=== PATIENT | female | born 1965 | race African-American/Black ===

== ENCOUNTER 2020-12-21 12:37 | Inpatient (IN) | payer OTHER ==
[2020-12-21 14:05] VITALS: BMI 49.8
[2020-12-21] MEDS ORDERED: MAGNESIUM HYDROX 2400MG/30ML ORAL SUSPENSION 30 ML CUP PO PRN (14:40)
[2020-12-21] MEDS ORDERED: MAGNESIUM CITRATE 300 ML BOTTLE PO PRN (14:40)
[2020-12-21] MEDS ORDERED: MAG HYDROX/AL HYDROX/SIMETH 30 ML UNIT-DOSE CUP PO PRN (14:40)
[2020-12-21] MEDS ORDERED: NICOTINE POLACRILEX 2 MG GUM BUC PRN (14:40)
[2020-12-21] MEDS ORDERED: IBUPROFEN 400 MG TABLET (FP) PO PRN (14:40)
[2020-12-21] MEDS ORDERED: LOPERAMIDE HCL 2 MG CAPSULE PO PRN (14:40)
[2020-12-21] MEDS ORDERED: guaiFENesin 200 MG/10 ML 10 ML UNIT-DOSE CUPS PO PRN (14:40)
[2020-12-21] MEDS ORDERED: P-EPHED 60MG/TRIPROLIDI 2.5MG TABLET PO PRN (14:40)
[2020-12-21] MEDS ORDERED: ACETAMINOPHEN 325 MG TABLET (FP) PO PRN (14:40)
[2020-12-21] MEDS ORDERED: ALBUTEROL SO4 HFA INHALER IH PRN (14:45)
[2020-12-21] MEDS ORDERED: NICOTINE 7 MG/24 HOURS TOPICAL PATCH TD SCH (14:45)
[2020-12-21 17:50] LABS: POTASSIUM 4.3 mmol/L (3.5-5.1)
[2020-12-21 17:51] LABS: HEMATOCRIT 45.4 % (32.4-45.2); HEMOGLOBIN 14.5 GM/dL (10.7-15.3); MCH 28.5 pg (25.7-33.7); MEAN CELL VOLUME 89.1 fl (80-96); MEAN PLT VOLUME 8.4 fl (7.5-11.1); PLATELET COUNT 237 K/MM3 (134-434); RDW 15.7 % (11.6-15.6); WHITE BLOOD COUNT 10.8 K/mm3 (4.0-10.0)
[2020-12-21 17:57] LABS: BLOOD UREA NITROGEN 20.8 mg/dL (7-18); CALCIUM 9.4 mg/dL (8.5-10.1)
[2020-12-21 18:02] LABS: BILIRUBIN,TOTAL 1.1 mg/dL (0.2-1); TOT PROT 6.6 g/dl (6.4-8.2)
[2020-12-21] MEDS: metFORMIN HCL 500 MG TABLET (FP) PO SCH (18:03)
[2020-12-21] MEDS: hydrOXYzine PAMOATE 25 MG CAPSULE (FP) PO SCH ×2 (18:07→21:59)
[2020-12-21 18:51] LABS: HIV INTERPRETATION NEGATIVE (NEGATIVE)
[2020-12-21] MEDS: MONTELUKAST NA 10 MG TABLET PO SCH (21:58)
[2020-12-21] MEDS: MELATONIN 5 MG TABLETS PO SCH (22:00)
[2020-12-21] MEDS: BUDESONIDE/FORMETEROL FUMARATE 80/4.5 mcg INHALER IH SCH (22:00)
[2020-12-21] MEDS: THIAMINE HCL 100 MG TABLET (FP) PO SCH (22:01)
[2020-12-22 00:15] LABS: URINE APPEARANCE TURBID; URINE BILIRUBIN NEGATIVE (NEGATIVE); URINE COLOR YELLOW; URINE GLUCOSE (UA) NEGATIVE (NEGATIVE); URINE KETONE TRACE (NEGATIVE); URINE LEUK ESTERASE NEGATIVE (NEGATIVE); URINE NITRITE NEGATIVE (NEGATIVE); URINE PROTEIN TRACE (NEGATIVE); URINE UROBILINOGEN 0.2 mg/dL (0.2-1.0)
[2020-12-22] MEDS: NICOTINE 14 MG/24 HOURS TOPICAL PATCH TD SCH ×2 (00:28→10:45)
[2020-12-22] MEDS: hydrOXYzine PAMOATE 25 MG CAPSULE (FP) PO SCH ×5 (06:31→21:29)
[2020-12-22] MEDS: metFORMIN HCL 500 MG TABLET (FP) PO SCH ×2 (06:32→16:52)
[2020-12-22] MEDS: PRENATAL VITAMINS W/ FOLIC ACID TABLET (FP) PO SCH (10:43)
[2020-12-22] MEDS: HYDROCHLOROTHIAZIDE 25 MG TABLET (FP) PO SCH (10:43)
[2020-12-22] MEDS: amLODIPine BESYLATE 10 MG TABLET (FP) PO SCH (10:44)
[2020-12-22] MEDS: ASPIRIN 81 MG CHEWABLE TABLETS PO SCH (10:44)
[2020-12-22] MEDS: ROSUVASTATIN CA 20 MG TABLET (FP) PO SCH (10:45)
[2020-12-22] MEDS: FUROSEMIDE 40 MG TABLET (FP) PO SCH (10:45)
[2020-12-22] MEDS: BUDESONIDE/FORMETEROL FUMARATE 80/4.5 mcg INHALER IH SCH ×2 (10:45→21:30)
[2020-12-22] MEDS: LISINOPRIL 20 MG TABLET PO SCH (10:47)
[2020-12-22] MEDS: TIOTROPIUM BROMIDE 2.5 MCG (SPIRIVA) RESPIMAT INHALER IH SCH (10:49)
[2020-12-22] MEDS: MONTELUKAST NA 10 MG TABLET PO SCH (21:29)
[2020-12-22] MEDS: MELATONIN 5 MG TABLETS PO SCH (21:29)
[2020-12-22] MEDS: THIAMINE HCL 100 MG TABLET (FP) PO SCH (21:29)
[2020-12-23] MEDS: hydrOXYzine PAMOATE 25 MG CAPSULE (FP) PO SCH ×5 (06:23→23:06)
[2020-12-23] MEDS: metFORMIN HCL 500 MG TABLET (FP) PO SCH ×2 (06:33→16:53)
[2020-12-23] MEDS: ASPIRIN 81 MG CHEWABLE TABLETS PO SCH (10:17)
[2020-12-23] MEDS: LISINOPRIL 20 MG TABLET PO SCH (10:17)
[2020-12-23] MEDS: amLODIPine BESYLATE 10 MG TABLET (FP) PO SCH (10:17)
[2020-12-23] MEDS: PRENATAL VITAMINS W/ FOLIC ACID TABLET (FP) PO SCH (10:17)
[2020-12-23] MEDS: HYDROCHLOROTHIAZIDE 25 MG TABLET (FP) PO SCH (10:17)
[2020-12-23] MEDS: TIOTROPIUM BROMIDE 2.5 MCG (SPIRIVA) RESPIMAT INHALER IH SCH (10:17)
[2020-12-23] MEDS: BUDESONIDE/FORMETEROL FUMARATE 80/4.5 mcg INHALER IH SCH ×2 (10:17→23:06)
[2020-12-23] MEDS: ROSUVASTATIN CA 20 MG TABLET (FP) PO SCH (10:18)
[2020-12-23] MEDS: FUROSEMIDE 40 MG TABLET (FP) PO SCH (10:18)
[2020-12-23] MEDS: NICOTINE 14 MG/24 HOURS TOPICAL PATCH TD SCH (10:18)
[2020-12-23] MEDS: traZODone HCL 50 MG TABLET (FP) PO SCH (23:05)
[2020-12-23] MEDS: MELATONIN 5 MG TABLETS PO SCH (23:05)
[2020-12-23] MEDS: THIAMINE HCL 100 MG TABLET (FP) PO SCH (23:06)
[2020-12-23] MEDS: MONTELUKAST NA 10 MG TABLET PO SCH (23:06)
[2020-12-24] MEDS: metFORMIN HCL 500 MG TABLET (FP) PO SCH ×2 (07:05→17:09)
[2020-12-24] MEDS: hydrOXYzine PAMOATE 25 MG CAPSULE (FP) PO SCH (07:05)
[2020-12-24] MEDS ORDERED: ARIPiprazole 20 MG TABLET PO SCH (10:00)
[2020-12-24] MEDS: PRENATAL VITAMINS W/ FOLIC ACID TABLET (FP) PO SCH (10:49)
[2020-12-24] MEDS: amLODIPine BESYLATE 10 MG TABLET (FP) PO SCH (10:49)
[2020-12-24] MEDS: HYDROCHLOROTHIAZIDE 25 MG TABLET (FP) PO SCH (10:49)
[2020-12-24] MEDS: ESCITALOPRAM OXALATE 10 MG TABLET PO SCH (10:49)
[2020-12-24] MEDS: LISINOPRIL 20 MG TABLET PO SCH (10:50)
[2020-12-24] MEDS: ASPIRIN 81 MG CHEWABLE TABLETS PO SCH (10:50)
[2020-12-24] MEDS: BUDESONIDE/FORMETEROL FUMARATE 80/4.5 mcg INHALER IH SCH ×2 (10:52→22:58)
[2020-12-24] MEDS: NICOTINE 14 MG/24 HOURS TOPICAL PATCH TD SCH (10:52)
[2020-12-24] MEDS: TIOTROPIUM BROMIDE 2.5 MCG (SPIRIVA) RESPIMAT INHALER IH SCH (10:52)
[2020-12-24] MEDS: FUROSEMIDE 40 MG TABLET (FP) PO SCH (11:55)
[2020-12-24] MEDS: ROSUVASTATIN CA 20 MG TABLET (FP) PO SCH (11:55)
[2020-12-24] MEDS: traZODone HCL 50 MG TABLET (FP) PO SCH (22:57)
[2020-12-24] MEDS: MELATONIN 5 MG TABLETS PO SCH (22:57)
[2020-12-24] MEDS: THIAMINE HCL 100 MG TABLET (FP) PO SCH (22:58)
[2020-12-24] MEDS: MONTELUKAST NA 10 MG TABLET PO SCH (22:58)
[2020-12-25] MEDS: metFORMIN HCL 500 MG TABLET (FP) PO SCH ×2 (06:30→16:48)
[2020-12-25] MEDS: ASPIRIN 81 MG CHEWABLE TABLETS PO SCH (10:12)
[2020-12-25] MEDS: ESCITALOPRAM OXALATE 10 MG TABLET PO SCH (10:12)
[2020-12-25] MEDS: LISINOPRIL 20 MG TABLET PO SCH (10:12)
[2020-12-25] MEDS: PRENATAL VITAMINS W/ FOLIC ACID TABLET (FP) PO SCH (10:12)
[2020-12-25] MEDS: HYDROCHLOROTHIAZIDE 25 MG TABLET (FP) PO SCH (10:12)
[2020-12-25] MEDS: NICOTINE 14 MG/24 HOURS TOPICAL PATCH TD SCH (10:12)
[2020-12-25] MEDS: amLODIPine BESYLATE 10 MG TABLET (FP) PO SCH (10:12)
[2020-12-25] MEDS: ROSUVASTATIN CA 20 MG TABLET (FP) PO SCH (10:12)
[2020-12-25] MEDS: ARIPiprazole 15 MG TABLET PO SCH (10:13)
[2020-12-25] MEDS: FUROSEMIDE 40 MG TABLET (FP) PO SCH (10:13)
[2020-12-25] MEDS: TIOTROPIUM BROMIDE 2.5 MCG (SPIRIVA) RESPIMAT INHALER IH SCH (10:16)
[2020-12-25] MEDS: BUDESONIDE/FORMETEROL FUMARATE 80/4.5 mcg INHALER IH SCH ×2 (10:16→21:17)
[2020-12-25] MEDS: MONTELUKAST NA 10 MG TABLET PO SCH (21:17)
[2020-12-25] MEDS: traZODone HCL 50 MG TABLET (FP) PO SCH (21:17)
[2020-12-25] MEDS: MELATONIN 5 MG TABLETS PO SCH (21:17)
[2020-12-25] MEDS: THIAMINE HCL 100 MG TABLET (FP) PO SCH (21:17)
[2020-12-26] MEDS: metFORMIN HCL 500 MG TABLET (FP) PO SCH ×2 (06:46→16:23)
[2020-12-26] MEDS: PRENATAL VITAMINS W/ FOLIC ACID TABLET (FP) PO SCH (10:03)
[2020-12-26] MEDS: ESCITALOPRAM OXALATE 10 MG TABLET PO SCH (10:03)
[2020-12-26] MEDS: ARIPiprazole 15 MG TABLET PO SCH (10:03)
[2020-12-26] MEDS: TIOTROPIUM BROMIDE 2.5 MCG (SPIRIVA) RESPIMAT INHALER IH SCH (10:03)
[2020-12-26] MEDS: hydrOXYzine PAMOATE 25 MG CAPSULE (FP) PO PRN (10:04)
[2020-12-26] MEDS: amLODIPine BESYLATE 10 MG TABLET (FP) PO SCH (10:04)
[2020-12-26] MEDS: NICOTINE 14 MG/24 HOURS TOPICAL PATCH TD SCH (10:04)
[2020-12-26] MEDS: LISINOPRIL 20 MG TABLET PO SCH (10:04)
[2020-12-26] MEDS: HYDROCHLOROTHIAZIDE 25 MG TABLET (FP) PO SCH (10:04)
[2020-12-26] MEDS: ROSUVASTATIN CA 20 MG TABLET (FP) PO SCH (10:04)
[2020-12-26] MEDS: ASPIRIN 81 MG CHEWABLE TABLETS PO SCH (10:04)
[2020-12-26] MEDS: FUROSEMIDE 40 MG TABLET (FP) PO SCH (10:05)
[2020-12-26] MEDS: BUDESONIDE/FORMETEROL FUMARATE 80/4.5 mcg INHALER IH SCH ×2 (10:05→21:40)
[2020-12-26] MEDS: MELATONIN 5 MG TABLETS PO SCH (21:39)
[2020-12-26] MEDS: THIAMINE HCL 100 MG TABLET (FP) PO SCH (21:39)
[2020-12-26] MEDS: traZODone HCL 50 MG TABLET (FP) PO SCH (21:39)
[2020-12-26] MEDS: MONTELUKAST NA 10 MG TABLET PO SCH (21:40)
[2020-12-27] MEDS: metFORMIN HCL 500 MG TABLET (FP) PO SCH ×2 (06:57→17:13)
[2020-12-27] MEDS: BUDESONIDE/FORMETEROL FUMARATE 80/4.5 mcg INHALER IH SCH ×2 (10:03→22:37)
[2020-12-27] MEDS: TIOTROPIUM BROMIDE 2.5 MCG (SPIRIVA) RESPIMAT INHALER IH SCH (10:03)
[2020-12-27] MEDS: PRENATAL VITAMINS W/ FOLIC ACID TABLET (FP) PO SCH (10:04)
[2020-12-27] MEDS: HYDROCHLOROTHIAZIDE 25 MG TABLET (FP) PO SCH (10:04)
[2020-12-27] MEDS: FUROSEMIDE 40 MG TABLET (FP) PO SCH (10:04)
[2020-12-27] MEDS: ARIPiprazole 15 MG TABLET PO SCH (10:04)
[2020-12-27] MEDS: LISINOPRIL 20 MG TABLET PO SCH (10:04)
[2020-12-27] MEDS: NICOTINE 14 MG/24 HOURS TOPICAL PATCH TD SCH (10:04)
[2020-12-27] MEDS: ESCITALOPRAM OXALATE 10 MG TABLET PO SCH (10:04)
[2020-12-27] MEDS: ASPIRIN 81 MG CHEWABLE TABLETS PO SCH (10:04)
[2020-12-27] MEDS: ROSUVASTATIN CA 20 MG TABLET (FP) PO SCH (10:04)
[2020-12-27] MEDS: amLODIPine BESYLATE 10 MG TABLET (FP) PO SCH (10:04)
[2020-12-27] MEDS: MELATONIN 5 MG TABLETS PO SCH (22:35)
[2020-12-27] MEDS: THIAMINE HCL 100 MG TABLET (FP) PO SCH (22:36)
[2020-12-27] MEDS: MONTELUKAST NA 10 MG TABLET PO SCH (22:36)
[2020-12-27] MEDS: traZODone HCL 50 MG TABLET (FP) PO SCH (22:36)
[2020-12-28] MEDS: metFORMIN HCL 500 MG TABLET (FP) PO SCH ×2 (06:48→17:08)
[2020-12-28] MEDS ORDERED: PT OWN MED DRAWER 7, Y5N ONE ×3 (08:45→10:19)
[2020-12-28] MEDS: PRENATAL VITAMINS W/ FOLIC ACID TABLET (FP) PO SCH (10:15)
[2020-12-28] MEDS: amLODIPine BESYLATE 10 MG TABLET (FP) PO SCH (10:15)
[2020-12-28] MEDS: ARIPiprazole 15 MG TABLET PO SCH (10:15)
[2020-12-28] MEDS: hydrOXYzine PAMOATE 25 MG CAPSULE (FP) PO PRN (10:15)
[2020-12-28] MEDS: ESCITALOPRAM OXALATE 10 MG TABLET PO SCH (10:15)
[2020-12-28] MEDS: ASPIRIN 81 MG CHEWABLE TABLETS PO SCH (10:15)
[2020-12-28] MEDS: HYDROCHLOROTHIAZIDE 25 MG TABLET (FP) PO SCH (10:15)
[2020-12-28] MEDS: LISINOPRIL 20 MG TABLET PO SCH (10:15)
[2020-12-28] MEDS: FUROSEMIDE 40 MG TABLET (FP) PO SCH (10:15)
[2020-12-28] MEDS: ROSUVASTATIN CA 20 MG TABLET (FP) PO SCH (10:17)
[2020-12-28] MEDS: BUDESONIDE/FORMETEROL FUMARATE 80/4.5 mcg INHALER IH SCH ×2 (10:19→21:33)
[2020-12-28] MEDS: TIOTROPIUM BROMIDE 2.5 MCG (SPIRIVA) RESPIMAT INHALER IH SCH (10:19)
[2020-12-28] MEDS: NICOTINE 14 MG/24 HOURS TOPICAL PATCH TD SCH (10:20)
[2020-12-28] MEDS ORDERED: MASKS NR ONE (13:02)
[2020-12-28] MEDS: traZODone HCL 50 MG TABLET (FP) PO SCH (21:33)
[2020-12-28] MEDS: MONTELUKAST NA 10 MG TABLET PO SCH (21:33)
[2020-12-28] MEDS: THIAMINE HCL 100 MG TABLET (FP) PO SCH (21:33)
[2020-12-28] MEDS: MELATONIN 5 MG TABLETS PO SCH (21:33)
[2020-12-29] MEDS: metFORMIN HCL 500 MG TABLET (FP) PO SCH ×2 (06:44→16:40)
[2020-12-29] MEDS ORDERED: PT OWN MED DRAWER 7, Y5N ONE ×2 (09:12→20:21)
[2020-12-29] MEDS: ARIPiprazole 15 MG TABLET PO SCH (10:27)
[2020-12-29] MEDS: ROSUVASTATIN CA 20 MG TABLET (FP) PO SCH (10:28)
[2020-12-29] MEDS: ASPIRIN 81 MG CHEWABLE TABLETS PO SCH (10:28)
[2020-12-29] MEDS: HYDROCHLOROTHIAZIDE 25 MG TABLET (FP) PO SCH (10:29)
[2020-12-29] MEDS: ESCITALOPRAM OXALATE 10 MG TABLET PO SCH (10:30)
[2020-12-29] MEDS: FUROSEMIDE 40 MG TABLET (FP) PO SCH (10:30)
[2020-12-29] MEDS: NICOTINE 14 MG/24 HOURS TOPICAL PATCH TD SCH (10:31)
[2020-12-29] MEDS: amLODIPine BESYLATE 10 MG TABLET (FP) PO SCH (10:32)
[2020-12-29] MEDS: PRENATAL VITAMINS W/ FOLIC ACID TABLET (FP) PO SCH (10:32)
[2020-12-29] MEDS: LISINOPRIL 20 MG TABLET PO SCH (10:32)
[2020-12-29] MEDS: BUDESONIDE/FORMETEROL FUMARATE 80/4.5 mcg INHALER IH SCH ×2 (10:34→21:28)
[2020-12-29] MEDS: TIOTROPIUM BROMIDE 2.5 MCG (SPIRIVA) RESPIMAT INHALER IH SCH (10:34)
[2020-12-29] MEDS: MONTELUKAST NA 10 MG TABLET PO SCH (21:26)
[2020-12-29] MEDS: traZODone HCL 50 MG TABLET (FP) PO SCH (21:27)
[2020-12-29] MEDS: THIAMINE HCL 100 MG TABLET (FP) PO SCH (21:27)
[2020-12-29] MEDS: MELATONIN 5 MG TABLETS PO SCH (21:28)
[2020-12-30] MEDS: metFORMIN HCL 500 MG TABLET (FP) PO SCH ×2 (06:52→17:00)
[2020-12-30] MEDS ORDERED: PT OWN MED DRAWER 7, Y5N ONE (09:07)
[2020-12-30] MEDS: PRENATAL VITAMINS W/ FOLIC ACID TABLET (FP) PO SCH (10:02)
[2020-12-30] MEDS: NICOTINE 14 MG/24 HOURS TOPICAL PATCH TD SCH (10:02)
[2020-12-30] MEDS: ASPIRIN 81 MG CHEWABLE TABLETS PO SCH (10:03)
[2020-12-30] MEDS: LISINOPRIL 20 MG TABLET PO SCH (10:03)
[2020-12-30] MEDS: ARIPiprazole 15 MG TABLET PO SCH (10:03)
[2020-12-30] MEDS: TIOTROPIUM BROMIDE 2.5 MCG (SPIRIVA) RESPIMAT INHALER IH SCH (10:05)
[2020-12-30] MEDS: BUDESONIDE/FORMETEROL FUMARATE 80/4.5 mcg INHALER IH SCH ×2 (10:05→21:36)
[2020-12-30] MEDS: FUROSEMIDE 40 MG TABLET (FP) PO SCH (10:05)
[2020-12-30] MEDS: HYDROCHLOROTHIAZIDE 25 MG TABLET (FP) PO SCH (10:05)
[2020-12-30] MEDS: amLODIPine BESYLATE 10 MG TABLET (FP) PO SCH (10:05)
[2020-12-30] MEDS: ESCITALOPRAM OXALATE 10 MG TABLET PO SCH (10:05)
[2020-12-30] MEDS: ROSUVASTATIN CA 20 MG TABLET (FP) PO SCH (10:05)
[2020-12-30] MEDS: traZODone HCL 50 MG TABLET (FP) PO SCH (21:35)
[2020-12-30] MEDS: MELATONIN 5 MG TABLETS PO SCH (21:35)
[2020-12-30] MEDS: MONTELUKAST NA 10 MG TABLET PO SCH (21:36)
[2020-12-30] MEDS: THIAMINE HCL 100 MG TABLET (FP) PO SCH (21:36)
[2020-12-31] MEDS: metFORMIN HCL 500 MG TABLET (FP) PO SCH ×2 (06:35→16:50)
[2020-12-31] MEDS: ASPIRIN 81 MG CHEWABLE TABLETS PO SCH (10:45)
[2020-12-31] MEDS: PRENATAL VITAMINS W/ FOLIC ACID TABLET (FP) PO SCH (10:45)
[2020-12-31] MEDS: FUROSEMIDE 40 MG TABLET (FP) PO SCH (10:46)
[2020-12-31] MEDS: LISINOPRIL 20 MG TABLET PO SCH (10:46)
[2020-12-31] MEDS: HYDROCHLOROTHIAZIDE 25 MG TABLET (FP) PO SCH (10:46)
[2020-12-31] MEDS: amLODIPine BESYLATE 10 MG TABLET (FP) PO SCH (10:46)
[2020-12-31] MEDS: ESCITALOPRAM OXALATE 10 MG TABLET PO SCH (10:46)
[2020-12-31] MEDS: BUDESONIDE/FORMETEROL FUMARATE 80/4.5 mcg INHALER IH SCH ×2 (10:47→21:34)
[2020-12-31] MEDS: TIOTROPIUM BROMIDE 2.5 MCG (SPIRIVA) RESPIMAT INHALER IH SCH (10:47)
[2020-12-31] MEDS: ROSUVASTATIN CA 20 MG TABLET (FP) PO SCH (10:47)
[2020-12-31] MEDS: ARIPiprazole 15 MG TABLET PO SCH (10:47)
[2020-12-31] MEDS: NICOTINE 14 MG/24 HOURS TOPICAL PATCH TD SCH (10:48)
[2020-12-31] MEDS: hydrOXYzine PAMOATE 25 MG CAPSULE (FP) PO PRN (21:33)
[2020-12-31] MEDS: MONTELUKAST NA 10 MG TABLET PO SCH (21:33)
[2020-12-31] MEDS: THIAMINE HCL 100 MG TABLET (FP) PO SCH (21:33)
[2020-12-31] MEDS: MELATONIN 5 MG TABLETS PO SCH (21:33)
[2020-12-31] MEDS: traZODone HCL 50 MG TABLET (FP) PO SCH (21:33)
[2021-01-01] MEDS ORDERED: PT OWN MED DRAWER 7, Y5N ONE ×2 (03:22→08:41)
[2021-01-01] MEDS: metFORMIN HCL 500 MG TABLET (FP) PO SCH ×2 (07:23→16:56)
[2021-01-01] MEDS: ESCITALOPRAM OXALATE 10 MG TABLET PO SCH (09:49)
[2021-01-01] MEDS: FUROSEMIDE 40 MG TABLET (FP) PO SCH (09:49)
[2021-01-01] MEDS: ARIPiprazole 15 MG TABLET PO SCH (09:49)
[2021-01-01] MEDS: BUDESONIDE/FORMETEROL FUMARATE 80/4.5 mcg INHALER IH SCH ×2 (09:49→21:43)
[2021-01-01] MEDS: ASPIRIN 81 MG CHEWABLE TABLETS PO SCH (09:49)
[2021-01-01] MEDS: TIOTROPIUM BROMIDE 2.5 MCG (SPIRIVA) RESPIMAT INHALER IH SCH (09:50)
[2021-01-01] MEDS: ROSUVASTATIN CA 20 MG TABLET (FP) PO SCH (09:50)
[2021-01-01] MEDS: NICOTINE 14 MG/24 HOURS TOPICAL PATCH TD SCH (09:51)
[2021-01-01] MEDS: HYDROCHLOROTHIAZIDE 25 MG TABLET (FP) PO SCH (09:51)
[2021-01-01] MEDS: LISINOPRIL 20 MG TABLET PO SCH (09:52)
[2021-01-01] MEDS: PRENATAL VITAMINS W/ FOLIC ACID TABLET (FP) PO SCH (09:52)
[2021-01-01] MEDS: amLODIPine BESYLATE 10 MG TABLET (FP) PO SCH (09:52)
[2021-01-01] MEDS: MELATONIN 5 MG TABLETS PO SCH (21:42)
[2021-01-01] MEDS: traZODone HCL 50 MG TABLET (FP) PO SCH (21:42)
[2021-01-01] MEDS: MONTELUKAST NA 10 MG TABLET PO SCH (21:42)
[2021-01-01] MEDS: THIAMINE HCL 100 MG TABLET (FP) PO SCH (21:43)
[2021-01-02] MEDS: metFORMIN HCL 500 MG TABLET (FP) PO SCH ×2 (06:39→16:56)
[2021-01-02] MEDS ORDERED: PT OWN MED DRAWER 7, Y5N ONE (08:57)
[2021-01-02] MEDS: TIOTROPIUM BROMIDE 2.5 MCG (SPIRIVA) RESPIMAT INHALER IH SCH (09:43)
[2021-01-02] MEDS: BUDESONIDE/FORMETEROL FUMARATE 80/4.5 mcg INHALER IH SCH ×2 (09:43→21:33)
[2021-01-02] MEDS: ASPIRIN 81 MG CHEWABLE TABLETS PO SCH (09:44)
[2021-01-02] MEDS: FUROSEMIDE 40 MG TABLET (FP) PO SCH (09:44)
[2021-01-02] MEDS: ROSUVASTATIN CA 20 MG TABLET (FP) PO SCH (09:44)
[2021-01-02] MEDS: HYDROCHLOROTHIAZIDE 25 MG TABLET (FP) PO SCH (09:44)
[2021-01-02] MEDS: ARIPiprazole 15 MG TABLET PO SCH (09:44)
[2021-01-02] MEDS: amLODIPine BESYLATE 10 MG TABLET (FP) PO SCH (09:44)
[2021-01-02] MEDS: LISINOPRIL 20 MG TABLET PO SCH (09:44)
[2021-01-02] MEDS: ESCITALOPRAM OXALATE 10 MG TABLET PO SCH (09:44)
[2021-01-02] MEDS: NICOTINE 14 MG/24 HOURS TOPICAL PATCH TD SCH (09:46)
[2021-01-02] MEDS: PRENATAL VITAMINS W/ FOLIC ACID TABLET (FP) PO SCH (09:46)
[2021-01-02] MEDS: MELATONIN 5 MG TABLETS PO SCH (21:32)
[2021-01-02] MEDS: traZODone HCL 50 MG TABLET (FP) PO SCH (21:32)
[2021-01-02] MEDS: MONTELUKAST NA 10 MG TABLET PO SCH (21:32)
[2021-01-02] MEDS: THIAMINE HCL 100 MG TABLET (FP) PO SCH (21:32)
[2021-01-03] MEDS: metFORMIN HCL 500 MG TABLET (FP) PO SCH ×2 (06:59→16:36)
[2021-01-03] MEDS ORDERED: PT OWN MED DRAWER 7, Y5N ONE ×2 (09:06→10:04)
[2021-01-03] MEDS: ASPIRIN 81 MG CHEWABLE TABLETS PO SCH (10:03)
[2021-01-03] MEDS: ARIPiprazole 15 MG TABLET PO SCH (10:03)
[2021-01-03] MEDS: ESCITALOPRAM OXALATE 10 MG TABLET PO SCH (10:04)
[2021-01-03] MEDS: HYDROCHLOROTHIAZIDE 25 MG TABLET (FP) PO SCH (10:04)
[2021-01-03] MEDS: ROSUVASTATIN CA 20 MG TABLET (FP) PO SCH (10:04)
[2021-01-03] MEDS: amLODIPine BESYLATE 10 MG TABLET (FP) PO SCH (10:05)
[2021-01-03] MEDS: FUROSEMIDE 40 MG TABLET (FP) PO SCH (10:05)
[2021-01-03] MEDS: LISINOPRIL 20 MG TABLET PO SCH (10:05)
[2021-01-03] MEDS: PRENATAL VITAMINS W/ FOLIC ACID TABLET (FP) PO SCH (10:06)
[2021-01-03] MEDS: BUDESONIDE/FORMETEROL FUMARATE 80/4.5 mcg INHALER IH SCH ×2 (10:07→21:16)
[2021-01-03] MEDS: TIOTROPIUM BROMIDE 2.5 MCG (SPIRIVA) RESPIMAT INHALER IH SCH (10:07)
[2021-01-03] MEDS: NICOTINE 14 MG/24 HOURS TOPICAL PATCH TD SCH (10:08)
[2021-01-03] MEDS: traZODone HCL 50 MG TABLET (FP) PO SCH (21:15)
[2021-01-03] MEDS: MONTELUKAST NA 10 MG TABLET PO SCH (21:15)
[2021-01-03] MEDS: MELATONIN 5 MG TABLETS PO SCH (21:15)
[2021-01-03] MEDS: THIAMINE HCL 100 MG TABLET (FP) PO SCH (21:15)
[2021-01-04] MEDS: metFORMIN HCL 500 MG TABLET (FP) PO SCH (06:30)
[2021-01-04 06:48] VITALS: TEMP 98
[2021-01-04] MEDS ORDERED: PT OWN MED DRAWER 7, Y5N ONE (08:48)
[2021-01-04 09:03] VITALS: BP 128/81; PULSE 110
== END 2021-01-04 09:06 | disposition home or self-care (01) | DRG 772 ==
LOC: YASAS 12:37 → Y3W 14:13 → Y3E 12-28 10:50
PROVIDERS: ADMIT Allergy & Immunology; ATTEND Allergy & Immunology
PROC: HZ42ZZZ Group Counseling for Substance Abuse Treatment, Cognitive-Behavioral (ICD-10-PCS; principal; 2020-12-21)
DX: F10.20 Alcohol dependence, uncomplicated (principal); F14.20 Cocaine dependence, uncomplicated; F17.210 Nicotine dependence, cigarettes, uncomplicated; F25.9 Schizoaffective disorder, unspecified; F31.9 Bipolar disorder, unspecified; I10 Essential (primary) hypertension; J44.9 Chronic obstructive pulmonary disease, unspecified; J45.40 Moderate persistent asthma, uncomplicated; G47.33 Obstructive sleep apnea (adult) (pediatric); E11.9 Type 2 diabetes mellitus without complications; Z79.84 Long term (current) use of oral hypoglycemic drugs; Z62.810 Personal history of physical and sexual abuse in childhood; Z68.42 Body mass index [BMI] 45.0-49.9, adult; Z86.718 Personal history of other venous thrombosis and embolism; Z91.018 Allergy to other foods; Z59.0 Homelessness; Z99.89 Dependence on other enabling machines and devices
CPT/HCPCS: 36415; 71046-TC-FY; 80053; 81003; 82962; 85027; 86593; 86780; 87389; 93005; 93010; C9803; U0003

== ENCOUNTER 2021-02-25 11:16 | Inpatient (IN) | payer OTHER ==
[2021-02-25 12:12] VITALS: BMI 46.3
[2021-02-25] MEDS ORDERED: guaiFENesin 200 MG/10 ML 10 ML UNIT-DOSE CUPS PO PRN (15:49)
[2021-02-25] MEDS ORDERED: MAGNESIUM CITRATE 300 ML BOTTLE PO PRN (15:49)
[2021-02-25] MEDS ORDERED: P-EPHED 60MG/TRIPROLIDI 2.5MG TABLET PO PRN (15:49)
[2021-02-25] MEDS ORDERED: LOPERAMIDE HCL 2 MG CAPSULE PO PRN (15:49)
[2021-02-25] MEDS ORDERED: ACETAMINOPHEN 325 MG TABLET (FP) PO PRN (15:49)
[2021-02-25] MEDS ORDERED: IBUPROFEN 400 MG TABLET (FP) PO PRN (15:49)
[2021-02-25] MEDS ORDERED: MAGNESIUM HYDROX 2400MG/30ML ORAL SUSPENSION 30 ML CUP PO PRN (15:49)
[2021-02-25] MEDS ORDERED: MAG HYDROX/AL HYDROX/SIMETH 30 ML UNIT-DOSE CUP PO PRN (15:49)
[2021-02-25] MEDS ORDERED: ALBUTEROL SO4 HFA INHALER IH PRN (16:06)
[2021-02-25] MEDS: hydrOXYzine PAMOATE 25 MG CAPSULE (FP) PO SCH ×2 (18:40→22:07)
[2021-02-25] MEDS: metFORMIN HCL 500 MG TABLET (FP) PO SCH (18:40)
[2021-02-25] MEDS: PRENATAL VITAMINS W/ FOLIC ACID TABLET (FP) PO SCH (18:41)
[2021-02-25] MEDS: NICOTINE 21 MG/24 HOURS TOPICAL PATCH TD SCH (18:42)
[2021-02-25] MEDS: MONTELUKAST NA 10 MG TABLET PO SCH (22:07)
[2021-02-25] MEDS: MELATONIN 5 MG TABLETS PO SCH (22:07)
[2021-02-25] MEDS: ROSUVASTATIN CA 20 MG TABLET (FP) PO SCH (22:07)
[2021-02-25] MEDS: THIAMINE HCL 100 MG TABLET (FP) PO SCH (22:07)
[2021-02-25] MEDS: BUDESONIDE/FORMETEROL FUMARATE 80/4.5 mcg INHALER IH SCH (22:07)
[2021-02-26] MEDS: metFORMIN HCL 500 MG TABLET (FP) PO SCH ×2 (06:39→17:26)
[2021-02-26] MEDS: hydrOXYzine PAMOATE 25 MG CAPSULE (FP) PO SCH ×5 (06:39→21:37)
[2021-02-26 10:19] LABS: HEMOGLOBIN 13.5 GM/dL (10.7-15.3); MCH 29.3 pg (25.7-33.7); MCHC 32.8 g/dl (32.0-36.0); MEAN CELL VOLUME 89.1 fl (80-96); MEAN PLT VOLUME 8.9 fl (7.5-11.1); PLATELET COUNT 196 K/MM3 (134-434); RDW 16.5 % (11.6-15.6); WHITE BLOOD COUNT 6.8 K/mm3 (4.0-10.0)
[2021-02-26] MEDS: PRENATAL VITAMINS W/ FOLIC ACID TABLET (FP) PO SCH (10:23)
[2021-02-26] MEDS: ASPIRIN 81 MG CHEWABLE TABLETS PO SCH (10:24)
[2021-02-26] MEDS: FUROSEMIDE 40 MG TABLET (FP) PO SCH (10:24)
[2021-02-26] MEDS: amLODIPine BESYLATE 10 MG TABLET (FP) PO SCH (10:24)
[2021-02-26] MEDS: BUDESONIDE/FORMETEROL FUMARATE 80/4.5 mcg INHALER IH SCH ×2 (10:24→21:38)
[2021-02-26] MEDS: TIOTROPIUM BROMIDE 2.5 MCG (SPIRIVA) RESPIMAT INHALER IH SCH (10:24)
[2021-02-26] MEDS: LISINOPRIL 20 MG TABLET PO SCH (10:24)
[2021-02-26] MEDS: HYDROCHLOROTHIAZIDE 25 MG TABLET (FP) PO SCH (10:24)
[2021-02-26] MEDS: NICOTINE 21 MG/24 HOURS TOPICAL PATCH TD SCH (10:29)
[2021-02-26 10:51] LABS: ALBUMIN 2.9 g/dl (3.4-5.0); BLOOD UREA NITROGEN 16.6 mg/dL (7-18); CALCIUM 8.9 mg/dL (8.5-10.1)
[2021-02-26 10:54] LABS: CREATININE 0.9 mg/dL (0.55-1.3)
[2021-02-26 10:55] LABS: BILIRUBIN,TOTAL 0.3 mg/dL (0.2-1); TOT PROT 6.2 g/dl (6.4-8.2)
[2021-02-26] MEDS ORDERED: GABAPENTIN 100 MG CAPSULE PO SCH (14:00)
[2021-02-26] MEDS: GABAPENTIN 100 MG CAPSULE PO SCH ×2 (14:43→21:37)
[2021-02-26] MEDS ORDERED: ROSUVASTATIN CA 10 MG TABLET (FP) ONE (19:22)
[2021-02-26] MEDS: THIAMINE HCL 100 MG TABLET (FP) PO SCH (21:37)
[2021-02-26] MEDS: ROSUVASTATIN CA 20 MG TABLET (FP) PO SCH (21:37)
[2021-02-26] MEDS: MELATONIN 5 MG TABLETS PO SCH (21:38)
[2021-02-26] MEDS: MONTELUKAST NA 10 MG TABLET PO SCH (21:38)
[2021-02-26] MEDS: traZODone HCL 50 MG TABLET (FP) PO SCH (21:39)
[2021-02-27] MEDS: GABAPENTIN 100 MG CAPSULE PO SCH ×2 (07:07→14:25)
[2021-02-27] MEDS: metFORMIN HCL 500 MG TABLET (FP) PO SCH ×2 (07:07→18:10)
[2021-02-27] MEDS: hydrOXYzine PAMOATE 25 MG CAPSULE (FP) PO SCH ×5 (07:08→22:05)
[2021-02-27] MEDS: ESCITALOPRAM OXALATE 10 MG TABLET PO SCH (09:38)
[2021-02-27] MEDS: ASPIRIN 81 MG CHEWABLE TABLETS PO SCH (09:38)
[2021-02-27] MEDS: FUROSEMIDE 40 MG TABLET (FP) PO SCH (09:38)
[2021-02-27] MEDS: HYDROCHLOROTHIAZIDE 25 MG TABLET (FP) PO SCH (09:38)
[2021-02-27] MEDS: PRENATAL VITAMINS W/ FOLIC ACID TABLET (FP) PO SCH (09:38)
[2021-02-27] MEDS: BUDESONIDE/FORMETEROL FUMARATE 80/4.5 mcg INHALER IH SCH ×2 (09:38→22:05)
[2021-02-27] MEDS: amLODIPine BESYLATE 10 MG TABLET (FP) PO SCH (09:38)
[2021-02-27] MEDS: LISINOPRIL 20 MG TABLET PO SCH (09:38)
[2021-02-27] MEDS: NICOTINE 21 MG/24 HOURS TOPICAL PATCH TD SCH (09:39)
[2021-02-27] MEDS: TIOTROPIUM BROMIDE 2.5 MCG (SPIRIVA) RESPIMAT INHALER IH SCH (09:39)
[2021-02-27] MEDS ORDERED: ARIPiprazole 10 MG TABLET PO SCH (10:00)
[2021-02-27] MEDS ORDERED: ROSUVASTATIN CA 10 MG TABLET (FP) ONE (19:55)
[2021-02-27] MEDS: ROSUVASTATIN CA 20 MG TABLET (FP) PO SCH (22:04)
[2021-02-27] MEDS: traZODone HCL 50 MG TABLET (FP) PO SCH (22:04)
[2021-02-27] MEDS: MELATONIN 5 MG TABLETS PO SCH (22:04)
[2021-02-27] MEDS: MONTELUKAST NA 10 MG TABLET PO SCH (22:05)
[2021-02-27] MEDS: GABAPENTIN 400 MG CAPSULE PO SCH (22:05)
[2021-02-27] MEDS: THIAMINE HCL 100 MG TABLET (FP) PO SCH (22:05)
[2021-02-28] MEDS: metFORMIN HCL 500 MG TABLET (FP) PO SCH ×2 (07:34→17:01)
[2021-02-28] MEDS: hydrOXYzine PAMOATE 25 MG CAPSULE (FP) PO SCH ×5 (07:34→21:40)
[2021-02-28] MEDS: GABAPENTIN 400 MG CAPSULE PO SCH ×3 (07:35→21:40)
[2021-02-28] MEDS: PRENATAL VITAMINS W/ FOLIC ACID TABLET (FP) PO SCH (09:47)
[2021-02-28] MEDS: ESCITALOPRAM OXALATE 10 MG TABLET PO SCH (09:48)
[2021-02-28] MEDS: LISINOPRIL 20 MG TABLET PO SCH (09:48)
[2021-02-28] MEDS: FUROSEMIDE 40 MG TABLET (FP) PO SCH (09:48)
[2021-02-28] MEDS: amLODIPine BESYLATE 10 MG TABLET (FP) PO SCH (09:48)
[2021-02-28] MEDS: HYDROCHLOROTHIAZIDE 25 MG TABLET (FP) PO SCH (09:48)
[2021-02-28] MEDS: BUDESONIDE/FORMETEROL FUMARATE 80/4.5 mcg INHALER IH SCH ×2 (10:26→21:40)
[2021-02-28] MEDS: ASPIRIN 81 MG CHEWABLE TABLETS PO SCH (10:26)
[2021-02-28] MEDS: NICOTINE 21 MG/24 HOURS TOPICAL PATCH TD SCH (10:26)
[2021-02-28] MEDS: TIOTROPIUM BROMIDE 2.5 MCG (SPIRIVA) RESPIMAT INHALER IH SCH (10:26)
[2021-02-28] MEDS ORDERED: ROSUVASTATIN CA 10 MG TABLET (FP) ONE (19:08)
[2021-02-28] MEDS: ROSUVASTATIN CA 20 MG TABLET (FP) PO SCH (21:40)
[2021-02-28] MEDS: THIAMINE HCL 100 MG TABLET (FP) PO SCH (21:40)
[2021-02-28] MEDS: MELATONIN 5 MG TABLETS PO SCH (21:40)
[2021-02-28] MEDS: traZODone HCL 50 MG TABLET (FP) PO SCH (21:40)
[2021-02-28] MEDS: MONTELUKAST NA 10 MG TABLET PO SCH (21:40)
[2021-03-01 06:06] LABS: SARS-CoV-2 NAA Not Detected (Not Detected)
[2021-03-01] MEDS: hydrOXYzine PAMOATE 25 MG CAPSULE (FP) PO SCH ×5 (07:13→23:17)
[2021-03-01] MEDS: GABAPENTIN 400 MG CAPSULE PO SCH ×3 (07:13→23:16)
[2021-03-01] MEDS: metFORMIN HCL 500 MG TABLET (FP) PO SCH ×2 (07:13→17:25)
[2021-03-01] MEDS: PRENATAL VITAMINS W/ FOLIC ACID TABLET (FP) PO SCH (09:47)
[2021-03-01] MEDS: NICOTINE 21 MG/24 HOURS TOPICAL PATCH TD SCH (09:47)
[2021-03-01] MEDS: BUDESONIDE/FORMETEROL FUMARATE 80/4.5 mcg INHALER IH SCH ×2 (09:47→23:16)
[2021-03-01] MEDS: TIOTROPIUM BROMIDE 2.5 MCG (SPIRIVA) RESPIMAT INHALER IH SCH (09:47)
[2021-03-01] MEDS: ASPIRIN 81 MG CHEWABLE TABLETS PO SCH (09:48)
[2021-03-01] MEDS: HYDROCHLOROTHIAZIDE 25 MG TABLET (FP) PO SCH (09:48)
[2021-03-01] MEDS: ESCITALOPRAM OXALATE 10 MG TABLET PO SCH (09:48)
[2021-03-01] MEDS: amLODIPine BESYLATE 10 MG TABLET (FP) PO SCH (09:48)
[2021-03-01] MEDS: FUROSEMIDE 40 MG TABLET (FP) PO SCH (09:48)
[2021-03-01] MEDS: LISINOPRIL 20 MG TABLET PO SCH (09:49)
[2021-03-01] MEDS: traZODone HCL 50 MG TABLET (FP) PO SCH (23:15)
[2021-03-01] MEDS: ROSUVASTATIN CA 20 MG TABLET (FP) PO SCH (23:15)
[2021-03-01] MEDS: MONTELUKAST NA 10 MG TABLET PO SCH (23:16)
[2021-03-01] MEDS: MELATONIN 5 MG TABLETS PO SCH (23:16)
[2021-03-01] MEDS: THIAMINE HCL 100 MG TABLET (FP) PO SCH (23:17)
[2021-03-02] MEDS: GABAPENTIN 400 MG CAPSULE PO SCH ×3 (06:50→21:07)
[2021-03-02] MEDS: metFORMIN HCL 500 MG TABLET (FP) PO SCH ×2 (06:50→17:07)
[2021-03-02] MEDS: hydrOXYzine PAMOATE 25 MG CAPSULE (FP) PO SCH ×6 (06:50→21:07)
[2021-03-02] MEDS: BUDESONIDE/FORMETEROL FUMARATE 80/4.5 mcg INHALER IH SCH ×2 (09:52→21:08)
[2021-03-02] MEDS: ARIPiprazole 10 MG TABLET PO SCH (09:52)
[2021-03-02] MEDS: HYDROCHLOROTHIAZIDE 25 MG TABLET (FP) PO SCH (09:53)
[2021-03-02] MEDS: LISINOPRIL 20 MG TABLET PO SCH (09:53)
[2021-03-02] MEDS: FUROSEMIDE 40 MG TABLET (FP) PO SCH (09:53)
[2021-03-02] MEDS: amLODIPine BESYLATE 10 MG TABLET (FP) PO SCH (09:53)
[2021-03-02] MEDS: ESCITALOPRAM OXALATE 10 MG TABLET PO SCH (09:53)
[2021-03-02] MEDS: ASPIRIN 81 MG CHEWABLE TABLETS PO SCH (09:53)
[2021-03-02] MEDS: TIOTROPIUM BROMIDE 2.5 MCG (SPIRIVA) RESPIMAT INHALER IH SCH (09:55)
[2021-03-02] MEDS: NICOTINE 21 MG/24 HOURS TOPICAL PATCH TD SCH (09:55)
[2021-03-02] MEDS: PRENATAL VITAMINS W/ FOLIC ACID TABLET (FP) PO SCH (09:57)
[2021-03-02] MEDS ORDERED: ROSUVASTATIN CA 10 MG TABLET (FP) ONE (20:13)
[2021-03-02] MEDS: MONTELUKAST NA 10 MG TABLET PO SCH (21:07)
[2021-03-02] MEDS: MELATONIN 5 MG TABLETS PO SCH (21:07)
[2021-03-02] MEDS: ROSUVASTATIN CA 20 MG TABLET (FP) PO SCH (21:07)
[2021-03-02] MEDS: THIAMINE HCL 100 MG TABLET (FP) PO SCH (21:07)
[2021-03-02] MEDS: traZODone HCL 50 MG TABLET (FP) PO SCH (21:07)
[2021-03-03] MEDS: GABAPENTIN 400 MG CAPSULE PO SCH (06:45)
[2021-03-03] MEDS: hydrOXYzine PAMOATE 25 MG CAPSULE (FP) PO SCH ×2 (06:45→09:49)
[2021-03-03] MEDS: metFORMIN HCL 500 MG TABLET (FP) PO SCH ×2 (06:46→17:25)
[2021-03-03] MEDS: TIOTROPIUM BROMIDE 2.5 MCG (SPIRIVA) RESPIMAT INHALER IH SCH (09:44)
[2021-03-03] MEDS: BUDESONIDE/FORMETEROL FUMARATE 80/4.5 mcg INHALER IH SCH ×2 (09:44→21:09)
[2021-03-03] MEDS: ARIPiprazole 10 MG TABLET PO SCH (09:45)
[2021-03-03] MEDS: ESCITALOPRAM OXALATE 10 MG TABLET PO SCH (09:45)
[2021-03-03] MEDS: FUROSEMIDE 40 MG TABLET (FP) PO SCH (09:45)
[2021-03-03] MEDS: ASPIRIN 81 MG CHEWABLE TABLETS PO SCH (09:45)
[2021-03-03] MEDS: LISINOPRIL 20 MG TABLET PO SCH (09:46)
[2021-03-03] MEDS: amLODIPine BESYLATE 10 MG TABLET (FP) PO SCH (09:46)
[2021-03-03] MEDS: PRENATAL VITAMINS W/ FOLIC ACID TABLET (FP) PO SCH (09:46)
[2021-03-03] MEDS: NICOTINE 21 MG/24 HOURS TOPICAL PATCH TD SCH (09:46)
[2021-03-03] MEDS: HYDROCHLOROTHIAZIDE 25 MG TABLET (FP) PO SCH (09:47)
[2021-03-03] MEDS: NICOTINE POLACRILEX 2 MG GUM BC PRN (09:50)
[2021-03-03] MEDS ORDERED: ROSUVASTATIN CA 10 MG TABLET (FP) ONE (20:56)
[2021-03-03] MEDS ORDERED: PT OWN MED DRAWER 7, Y5N ONE (20:57)
[2021-03-03] MEDS: traZODone HCL 50 MG TABLET (FP) PO SCH (21:09)
[2021-03-03] MEDS: MELATONIN 5 MG TABLETS PO SCH (21:09)
[2021-03-03] MEDS: GABAPENTIN 100 MG CAPSULE PO SCH (21:09)
[2021-03-03] MEDS: THIAMINE HCL 100 MG TABLET (FP) PO SCH (21:09)
[2021-03-03] MEDS: ROSUVASTATIN CA 20 MG TABLET (FP) PO SCH (21:09)
[2021-03-03] MEDS: MONTELUKAST NA 10 MG TABLET PO SCH (21:09)
[2021-03-04] MEDS: metFORMIN HCL 500 MG TABLET (FP) PO SCH ×2 (06:40→16:49)
[2021-03-04] MEDS: GABAPENTIN 100 MG CAPSULE PO SCH ×3 (06:40→21:10)
[2021-03-04] MEDS: PRENATAL VITAMINS W/ FOLIC ACID TABLET (FP) PO SCH (09:39)
[2021-03-04] MEDS: NICOTINE 21 MG/24 HOURS TOPICAL PATCH TD SCH (09:39)
[2021-03-04] MEDS: BUDESONIDE/FORMETEROL FUMARATE 80/4.5 mcg INHALER IH SCH ×2 (09:39→21:20)
[2021-03-04] MEDS: TIOTROPIUM BROMIDE 2.5 MCG (SPIRIVA) RESPIMAT INHALER IH SCH (09:40)
[2021-03-04] MEDS: FUROSEMIDE 40 MG TABLET (FP) PO SCH (09:41)
[2021-03-04] MEDS: ESCITALOPRAM OXALATE 10 MG TABLET PO SCH (09:41)
[2021-03-04] MEDS: amLODIPine BESYLATE 10 MG TABLET (FP) PO SCH (09:41)
[2021-03-04] MEDS: HYDROCHLOROTHIAZIDE 25 MG TABLET (FP) PO SCH (09:41)
[2021-03-04] MEDS: ASPIRIN 81 MG CHEWABLE TABLETS PO SCH (09:41)
[2021-03-04] MEDS: LISINOPRIL 20 MG TABLET PO SCH (09:41)
[2021-03-04] MEDS: ARIPiprazole 10 MG TABLET PO SCH (09:42)
[2021-03-04] MEDS ORDERED: ROSUVASTATIN CA 10 MG TABLET (FP) ONE (18:46)
[2021-03-04] MEDS: MONTELUKAST NA 10 MG TABLET PO SCH (21:10)
[2021-03-04] MEDS: ROSUVASTATIN CA 20 MG TABLET (FP) PO SCH (21:10)
[2021-03-04] MEDS: traZODone HCL 50 MG TABLET (FP) PO SCH (21:10)
[2021-03-04] MEDS: THIAMINE HCL 100 MG TABLET (FP) PO SCH (21:11)
[2021-03-04] MEDS: hydrOXYzine PAMOATE 25 MG CAPSULE (FP) PO PRN (21:11)
[2021-03-04] MEDS: MELATONIN 5 MG TABLETS PO SCH (21:11)
[2021-03-05] MEDS: GABAPENTIN 100 MG CAPSULE PO SCH ×3 (07:28→21:05)
[2021-03-05] MEDS: metFORMIN HCL 500 MG TABLET (FP) PO SCH ×2 (07:29→16:47)
[2021-03-05] MEDS ORDERED: PT OWN MED DRAWER 7, Y5N ONE (08:34)
[2021-03-05] MEDS: PRENATAL VITAMINS W/ FOLIC ACID TABLET (FP) PO SCH (09:29)
[2021-03-05] MEDS: BUDESONIDE/FORMETEROL FUMARATE 80/4.5 mcg INHALER IH SCH ×2 (09:30→21:04)
[2021-03-05] MEDS: amLODIPine BESYLATE 10 MG TABLET (FP) PO SCH (09:30)
[2021-03-05] MEDS: ESCITALOPRAM OXALATE 10 MG TABLET PO SCH (09:30)
[2021-03-05] MEDS: ASPIRIN 81 MG CHEWABLE TABLETS PO SCH (09:30)
[2021-03-05] MEDS: HYDROCHLOROTHIAZIDE 25 MG TABLET (FP) PO SCH (09:30)
[2021-03-05] MEDS: FUROSEMIDE 40 MG TABLET (FP) PO SCH (09:31)
[2021-03-05] MEDS: ARIPiprazole 10 MG TABLET PO SCH (09:31)
[2021-03-05] MEDS: NICOTINE 21 MG/24 HOURS TOPICAL PATCH TD SCH (09:31)
[2021-03-05] MEDS: TIOTROPIUM BROMIDE 2.5 MCG (SPIRIVA) RESPIMAT INHALER IH SCH (09:31)
[2021-03-05] MEDS: LISINOPRIL 20 MG TABLET PO SCH (09:31)
[2021-03-05] MEDS: NICOTINE POLACRILEX 2 MG GUM BC PRN (09:32)
[2021-03-05] MEDS ORDERED: ROSUVASTATIN CA 10 MG TABLET (FP) ONE (19:28)
[2021-03-05] MEDS: traZODone HCL 50 MG TABLET (FP) PO SCH (21:05)
[2021-03-05] MEDS: MELATONIN 5 MG TABLETS PO SCH (21:05)
[2021-03-05] MEDS: ROSUVASTATIN CA 20 MG TABLET (FP) PO SCH (21:05)
[2021-03-05] MEDS: THIAMINE HCL 100 MG TABLET (FP) PO SCH (21:05)
[2021-03-05] MEDS: MONTELUKAST NA 10 MG TABLET PO SCH (21:05)
[2021-03-05] MEDS: hydrOXYzine PAMOATE 25 MG CAPSULE (FP) PO PRN (21:07)
[2021-03-06] MEDS: GABAPENTIN 100 MG CAPSULE PO SCH ×3 (07:58→21:07)
[2021-03-06] MEDS: metFORMIN HCL 500 MG TABLET (FP) PO SCH ×2 (07:58→16:10)
[2021-03-06] MEDS ORDERED: PT OWN MED DRAWER 7, Y5N ONE (08:12)
[2021-03-06] MEDS: PRENATAL VITAMINS W/ FOLIC ACID TABLET (FP) PO SCH (09:36)
[2021-03-06] MEDS: LISINOPRIL 20 MG TABLET PO SCH (09:37)
[2021-03-06] MEDS: HYDROCHLOROTHIAZIDE 25 MG TABLET (FP) PO SCH (09:37)
[2021-03-06] MEDS: ESCITALOPRAM OXALATE 10 MG TABLET PO SCH (09:37)
[2021-03-06] MEDS: ASPIRIN 81 MG CHEWABLE TABLETS PO SCH (09:37)
[2021-03-06] MEDS: BUDESONIDE/FORMETEROL FUMARATE 80/4.5 mcg INHALER IH SCH ×2 (09:37→21:08)
[2021-03-06] MEDS: FUROSEMIDE 40 MG TABLET (FP) PO SCH (09:37)
[2021-03-06] MEDS: amLODIPine BESYLATE 10 MG TABLET (FP) PO SCH (09:37)
[2021-03-06] MEDS: NICOTINE 21 MG/24 HOURS TOPICAL PATCH TD SCH (09:37)
[2021-03-06] MEDS: TIOTROPIUM BROMIDE 2.5 MCG (SPIRIVA) RESPIMAT INHALER IH SCH (09:38)
[2021-03-06] MEDS: ARIPiprazole 10 MG TABLET PO SCH (09:38)
[2021-03-06 18:05] LABS: PH,URINE 6.5 (5.0-8.0); URINE APPEARANCE CLEAR; URINE BILIRUBIN NEGATIVE (NEGATIVE); URINE COLOR YELLOW; URINE GLUCOSE (UA) NEGATIVE (NEGATIVE); URINE KETONE NEGATIVE (NEGATIVE); URINE LEUK ESTERASE NEGATIVE (NEGATIVE); URINE NITRITE NEGATIVE (NEGATIVE); URINE PROTEIN NEGATIVE (NEGATIVE); URINE UROBILINOGEN 0.2 mg/dL (0.2-1.0)
[2021-03-06] MEDS: traZODone HCL 50 MG TABLET (FP) PO SCH (21:07)
[2021-03-06] MEDS: MONTELUKAST NA 10 MG TABLET PO SCH (21:07)
[2021-03-06] MEDS: MELATONIN 5 MG TABLETS PO SCH (21:07)
[2021-03-06] MEDS ORDERED: ROSUVASTATIN CA 10 MG TABLET (FP) ONE (21:08)
[2021-03-06] MEDS: THIAMINE HCL 100 MG TABLET (FP) PO SCH (21:08)
[2021-03-06] MEDS: ROSUVASTATIN CA 20 MG TABLET (FP) PO SCH (21:09)
[2021-03-06] MEDS: hydrOXYzine PAMOATE 25 MG CAPSULE (FP) PO PRN (21:10)
[2021-03-07] MEDS: metFORMIN HCL 500 MG TABLET (FP) PO SCH ×2 (06:39→16:32)
[2021-03-07] MEDS: GABAPENTIN 100 MG CAPSULE PO SCH ×3 (06:40→21:06)
[2021-03-07 06:52] VITALS: TEMP 97.6
[2021-03-07] MEDS: BUDESONIDE/FORMETEROL FUMARATE 80/4.5 mcg INHALER IH SCH ×2 (09:42→21:08)
[2021-03-07] MEDS: LISINOPRIL 20 MG TABLET PO SCH (09:43)
[2021-03-07] MEDS: HYDROCHLOROTHIAZIDE 25 MG TABLET (FP) PO SCH (09:43)
[2021-03-07] MEDS: ESCITALOPRAM OXALATE 10 MG TABLET PO SCH (09:43)
[2021-03-07] MEDS: ASPIRIN 81 MG CHEWABLE TABLETS PO SCH (09:43)
[2021-03-07] MEDS: FUROSEMIDE 40 MG TABLET (FP) PO SCH (09:43)
[2021-03-07] MEDS: amLODIPine BESYLATE 10 MG TABLET (FP) PO SCH (09:43)
[2021-03-07] MEDS: NICOTINE 21 MG/24 HOURS TOPICAL PATCH TD SCH (09:44)
[2021-03-07] MEDS: NICOTINE POLACRILEX 2 MG GUM BC PRN (09:44)
[2021-03-07] MEDS: ARIPiprazole 10 MG TABLET PO SCH (09:44)
[2021-03-07] MEDS: TIOTROPIUM BROMIDE 2.5 MCG (SPIRIVA) RESPIMAT INHALER IH SCH (09:44)
[2021-03-07] MEDS: PRENATAL VITAMINS W/ FOLIC ACID TABLET (FP) PO SCH (09:48)
[2021-03-07] MEDS ORDERED: ROSUVASTATIN CA 10 MG TABLET (FP) ONE (19:24)
[2021-03-07] MEDS: MELATONIN 5 MG TABLETS PO SCH (21:05)
[2021-03-07] MEDS: THIAMINE HCL 100 MG TABLET (FP) PO SCH (21:06)
[2021-03-07] MEDS: MONTELUKAST NA 10 MG TABLET PO SCH (21:06)
[2021-03-07] MEDS: hydrOXYzine PAMOATE 25 MG CAPSULE (FP) PO PRN (21:06)
[2021-03-07] MEDS: ROSUVASTATIN CA 20 MG TABLET (FP) PO SCH (21:07)
[2021-03-07] MEDS: traZODone HCL 50 MG TABLET (FP) PO SCH (21:07)
[2021-03-08] MEDS: metFORMIN HCL 500 MG TABLET (FP) PO SCH ×2 (06:09→17:36)
[2021-03-08] MEDS: GABAPENTIN 100 MG CAPSULE PO SCH ×3 (06:09→21:01)
[2021-03-08] MEDS: PRENATAL VITAMINS W/ FOLIC ACID TABLET (FP) PO SCH (09:34)
[2021-03-08] MEDS: BUDESONIDE/FORMETEROL FUMARATE 80/4.5 mcg INHALER IH SCH ×2 (09:34→21:02)
[2021-03-08] MEDS: NICOTINE 21 MG/24 HOURS TOPICAL PATCH TD SCH (09:34)
[2021-03-08] MEDS: HYDROCHLOROTHIAZIDE 25 MG TABLET (FP) PO SCH (09:35)
[2021-03-08] MEDS: TIOTROPIUM BROMIDE 2.5 MCG (SPIRIVA) RESPIMAT INHALER IH SCH (09:35)
[2021-03-08] MEDS: ASPIRIN 81 MG CHEWABLE TABLETS PO SCH (09:35)
[2021-03-08] MEDS: FUROSEMIDE 40 MG TABLET (FP) PO SCH (09:35)
[2021-03-08] MEDS: amLODIPine BESYLATE 10 MG TABLET (FP) PO SCH (09:35)
[2021-03-08] MEDS: LISINOPRIL 20 MG TABLET PO SCH (09:35)
[2021-03-08] MEDS: ESCITALOPRAM OXALATE 10 MG TABLET PO SCH (09:38)
[2021-03-08] MEDS: ARIPiprazole 10 MG TABLET PO SCH (11:59)
[2021-03-08] MEDS ORDERED: ROSUVASTATIN CA 10 MG TABLET (FP) ONE (18:58)
[2021-03-08] MEDS ORDERED: PT OWN MED DRAWER 7, Y5N ONE (18:59)
[2021-03-08] MEDS: MONTELUKAST NA 10 MG TABLET PO SCH (21:01)
[2021-03-08] MEDS: MELATONIN 5 MG TABLETS PO SCH (21:01)
[2021-03-08] MEDS: traZODone HCL 50 MG TABLET (FP) PO SCH (21:02)
[2021-03-08] MEDS: THIAMINE HCL 100 MG TABLET (FP) PO SCH (21:02)
[2021-03-08] MEDS: ROSUVASTATIN CA 20 MG TABLET (FP) PO SCH (21:02)
[2021-03-08] MEDS: hydrOXYzine PAMOATE 25 MG CAPSULE (FP) PO PRN (21:03)
[2021-03-09] MEDS: metFORMIN HCL 500 MG TABLET (FP) PO SCH (06:09)
[2021-03-09] MEDS: GABAPENTIN 100 MG CAPSULE PO SCH (06:09)
[2021-03-09] MEDS ORDERED: PT OWN MED DRAWER 7, Y5N ONE ×2 (08:43→10:17)
[2021-03-09] MEDS: ASPIRIN 81 MG CHEWABLE TABLETS PO SCH (09:11)
[2021-03-09] MEDS: PRENATAL VITAMINS W/ FOLIC ACID TABLET (FP) PO SCH (09:11)
[2021-03-09] MEDS: BUDESONIDE/FORMETEROL FUMARATE 80/4.5 mcg INHALER IH SCH (09:11)
[2021-03-09] MEDS: HYDROCHLOROTHIAZIDE 25 MG TABLET (FP) PO SCH (09:11)
[2021-03-09] MEDS: amLODIPine BESYLATE 10 MG TABLET (FP) PO SCH (09:12)
[2021-03-09] MEDS: ESCITALOPRAM OXALATE 10 MG TABLET PO SCH (09:12)
[2021-03-09] MEDS: LISINOPRIL 20 MG TABLET PO SCH (09:12)
[2021-03-09] MEDS: FUROSEMIDE 40 MG TABLET (FP) PO SCH (09:12)
[2021-03-09] MEDS: ARIPiprazole 10 MG TABLET PO SCH (09:13)
[2021-03-09 09:14] VITALS: BP 117/67; PULSE 85
[2021-03-09] MEDS: NICOTINE 21 MG/24 HOURS TOPICAL PATCH TD SCH (09:14)
[2021-03-09] MEDS: TIOTROPIUM BROMIDE 2.5 MCG (SPIRIVA) RESPIMAT INHALER IH SCH (09:14)
== END 2021-03-09 10:20 | disposition home or self-care (01) | DRG 772 ==
LOC: YASAS 11:16 → Y5N 16:55
PROVIDERS: ADMIT Allergy & Immunology; ATTEND Allergy & Immunology
PROC: HZ42ZZZ Group Counseling for Substance Abuse Treatment, Cognitive-Behavioral (ICD-10-PCS; principal; 2021-02-25)
DX: F14.20 Cocaine dependence, uncomplicated (principal); F17.210 Nicotine dependence, cigarettes, uncomplicated; F31.9 Bipolar disorder, unspecified; F25.9 Schizoaffective disorder, unspecified; G47.33 Obstructive sleep apnea (adult) (pediatric); G47.00 Insomnia, unspecified; I10 Essential (primary) hypertension; E11.9 Type 2 diabetes mellitus without complications; Z79.84 Long term (current) use of oral hypoglycemic drugs; J44.9 Chronic obstructive pulmonary disease, unspecified; J45.909 Unspecified asthma, uncomplicated; M17.0 Bilateral primary osteoarthritis of knee; E66.01 Morbid (severe) obesity due to excess calories; Z68.42 Body mass index [BMI] 45.0-49.9, adult; Z86.718 Personal history of other venous thrombosis and embolism; Z99.89 Dependence on other enabling machines and devices; W19.XXXA Unspecified fall, initial encounter; Y93.89 Activity, other specified; Y92.230 Patient room in hospital as the place of occurrence of the external cause
CPT/HCPCS: 36415; 80053; 81003; 81025; 82962; 85027; 86593; 86780; C9803; U0003; U0005

== ENCOUNTER 2021-03-01 16:45 | Emergency (ER) | payer OTHER ==
[2021-03-01 17:20] VITALS: BMI 48.0
[2021-03-01] MEDS ORDERED: ACETAMINOPHEN 325 MG TABLET (FP) PO ONE (18:04)
[2021-03-01] MEDS ORDERED: ACETAMINOPHEN 325 MG TABLET (FP) ONE (18:38)
[2021-03-02 01:46] VITALS: BP 140/95; PULSE 81; TEMP 97.7
== END 2021-03-02 03:55 | disposition short-term general hospital (02) ==
LOC: JER 16:45
DX: S80.912A Unspecified superficial injury of left knee, initial encounter (principal)
CPT/HCPCS: 70450-TC; 70486-TC; 72125-TC; 73564-TC-LT-FY; 99284-25